=== PATIENT | female | born 1985 | race Hispanic/Latino ===

== ENCOUNTER 2017-08-06 16:11 | Emergency (ER) | payer OTHER ==
[~2017-08-06] VITALS: Ht 167.6 cm; Wt 103.6 kg
[~2017-08-06 16:11] MED LIST: ATORVASTATIN CA10 MG PO; CLONAZEPAM1 MG PO; CYMBALTA60 MG PO; LEVOTHYROXINE88 MCG PO; MACROBID 100 M100 MG PO; METFORMIN HCL500 MG PO; METOPROLOL TAR100 MG PO; NORCO 5-325 TA1 EACH PO; TYLENOL325 MG PO; ULTRAM50 MG PO
== END 2017-08-06 19:00 | disposition left against medical advice (07) ==
LOC: ED 16:11
DX: Z53.21 Procedure and treatment not carried out due to patient leaving prior to being seen by health care provider (principal)
CPT/HCPCS: 81001; 99281

== ENCOUNTER 2018-11-09 21:20 | Emergency (ER) | payer OTHER ==
[~2018-11-09] VITALS: Ht 167.6 cm; Wt 96.6 kg
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
[2018-11-09] MEDS ORDERED: RISPERDAL0.25 MG PO (21:59)
[2018-11-09] MEDS ORDERED: LANTUS100 UNITS/ SUB-Q (22:00)
[2018-11-09] MEDS ORDERED: INSULIN SYRING MC (22:00)
== END 2018-11-09 23:04 | disposition home or self-care (01) ==
LOC: ED 21:20
DX: R10.9 Unspecified abdominal pain (principal); R30.0 Dysuria; I10 Essential (primary) hypertension; F32.9 Major depressive disorder, single episode, unspecified; E11.9 Type 2 diabetes mellitus without complications; E78.00 Pure hypercholesterolemia, unspecified; F17.200 Nicotine dependence, unspecified, uncomplicated; Z88.5 Allergy status to narcotic agent; Z79.899 Other long term (current) drug therapy; Z79.4 Long term (current) use of insulin
CPT/HCPCS: 36415; 74176; 80053; 81001; 84703; 85025; 96360; 99284-25; J7030